=== PATIENT | female | born 1960 | race Caucasian/White ===

== ENCOUNTER → 2024-05-25 09:01 | Outpatient (REF) | payer OTHER, SELFPAY ==
--- NOTE | 2024-05-07 12:43 | PN.DIAED04 ---
Education Record
- Education Record
Class Attended: Other (Pre-Registration for DSME Classes)
DSME Class Series Code: [id number]
Instructor: Nurse Practitioner
Class Length (mins): 60
Pre-Program Knowledge: No knowledge
Pre-Test Score (%): 53
Goals
- Goal 1
Being Active: Exercise 30 minutes-5 times per week (Currently doing abd exercises for 10-15 minutes a day. Encouraged to add moderate ressistance workout routine)
Goals To Be Evaluated: Exercise 30 mins-5x/week
- Goal 2
Healthy Eating: Reduce portion sizes
Goals To Be Evaluated: Reduce portion sizes
- Goal 3
Monitoring: Follow monitoring schedule (Currently monitoring once a day, ebcouraged to monitor BID)
Goals To Be Evaluated: Follow monitoring times
--- NOTE | 2024-05-07 12:54 | PN.DIAED02 ---
Referral
DSME Class Series Code: [id number]
Referred For: Diabetes Self-Management Training, Disease Management
PHI Release Authorization Form Signed: Yes
Patient Problems:
Current Active Problems
Problem Status Onset
Type 2 diabetes mellitus without complications ~03/11/24
Demographic
(1) Type 2 diabetes mellitus without complications
Status: Acute Onset Date: ~03/11/24
Qualifiers:
Diabetes mellitus chcf insulin use: without chcf use Qualified Code(s): E11.9 - Type 2 diabetes mellitus without complications
Code(s): E11.9 - Type 2 diabetes mellitus without complications
Patient's primary language-: Pakistani
Education: High school/GED
Glycemic Control
- Blood Glucose Monitoring Assessment
Date: 05/07/24
Blood glucose monitoring at home: Yes (140)
Monitor Brands: OneTouch
Frequency: 1x per day
Time: fasting
Patient uses Alternate Site Testing: No
Patient instructed on Use and Limitation: No
- Blood Glucose Monitoring Results
Source: self-report
- Hemoglobin A1c
Date: 04/22/24
A1C Percentage (%): 8.7
Medical History of Diabetes
Family Diabetes History: Father (not biological)
Previous Diabetes Education: No
Previous visit with Dietitian: Yes
How long ago?: 1-5 years ago
Reason for visiting a Dietitian:
At initial dx of T2DM
Complications/Comorbidity/Specialist: Other / symptoms (Hypothyroidism)
- Psychosocial / Other Medical History
Notes:
ADHD, Anxiety and Depression
Measures
- Anthropometrics
Height: 5 ft 6 in
Actual Weight: 155 kg
- Blood Pressure / Pulse
Blood pressure: 135/86
- Diabetes Management
Medical Management for Diabetes: Complete physical exam (03/02/2024), Dental exam (04/28/2024), Dilated eye exam (11/14/2023), Foot exam (04/02/2024), Pneumonia vaccination (10/2022)
Self-Care
- Tobacco Usage
Do you now, or have you ever smoked?: Never smoked
- Alcohol & Drugs Usage
Drinks Alcohol: Yes
Amount/day: Social Occasions (A glass of wine)
Uses Recreational Drugs: No
- Meals & Dining
Meals & Dining: Patient skips meals: Yes, Food Intolerance / Allergy: No, Cultural / Buddhism Dietary Needs: No
Primary Food Education Nurse: Self
Primary Hospital Recruiter: Self
Dining Out Frequency: 1-3x per week
- Physical Activity
Physical Limitation: No
Patient participates in physical Activity: Yes (Ab lounger and squats)
Activity Types: Combination
Duration: 10-20 minutes
Frequency: 3-5x per week
Intensity: Easy
- Self Foot-Care
Foot Problems: None
Performs Self Foot-Exam: Yes
Frequency: Daily
- Patient-Self Assessment
Diabetes Knowledge: Poor
Feelings About Diabetes: Adaptation
General Health: Good
Importance of Health: Extremely
Stress Level: Medium
Diabetes Interferes With:: Nothing
Barriers to Diabetes Management: Nothing
Depression Survey Score: 10
- Diabetes Identification
Carries Diabetes Identification: No
Diabetes Identification Information Provided: No
Care Plan
- Education Needs
Patient Education Needs: Diabetes disease process, Chronic complications, Acute complications, Medication, Monitoring, Physical activity, Psychosocial Adjustment, Nutritional management, Goal setting & problem solving
Recommended Diabetes Training Program based on assessment: Outpatient Diabetes Education Program
- Plan of Care
Plan of Care:
Met with Patient today for registration and initiation of Diabetes Self management. Pt was recommended by her PCP due to uncontrolled blood sugars, A1C of 8.7% that was noted on recent blood work. Patient is taking Jardiance 25mg daily and
Repaglinide 1mg TID.
Reports that she has a Glucose monitor- Contour [employer] and is monitoring her sugars once a day-fasting. Reviewed testing pattern and set a schedule for her to monitor her blood sugars 2x/day- Fasting and 2 hrs after dinner.
Pt was counseled with emphasis on the importance of Physical activity, need to adhere to a healthy life style including healthy eating, taking her medications and monitoring blood glucose. We spent a good amount of time discussing dietary choices.
Goals for physical activity were established; pt will increase her duration of exercise to 45 minutes, 5 days a week.
--- NOTE | 2024-05-26 14:10 | PN.DIAED14 ---
This is to notify you that your patient with diabetes, LALO HURTADO ( 1960), has enrolled in our diabetes self-management classes that are being held at [facility].
These classes will include an introduction to diabetes, diet, medication, exercise and prevention of complications. At the end of our class series, you will receive a report of your patient's participation and progress for your records.
Please contact me at the Diabetes Center, , if there is any particular information regarding your patient that might be helpful to me.
Sincerely,
DARRYN Mccann-, [facility]
Director
Diabetes & Nutrition Services
== END ==
LOC: DES 09:01
PROVIDERS: ATTENDING PHYSICIAN Family Medicine
DX: E11.65 Type 2 diabetes mellitus with hyperglycemia (principal)
CPT/HCPCS: 99078

== ENCOUNTER → 2024-06-01 12:00 | Outpatient (REF) | payer OTHER, SELFPAY ==
--- NOTE | 2024-06-02 10:35 | PN.DIAED04 ---
Education Record
- Education Record
Class Attended: Class 2
DSME Class Series Code: [id number]
Instructor: Registered Dietitian (Bonnie Harding, RD, LDN, CDE)
Class Length (mins): 120
== END ==
LOC: DES 12:00
PROVIDERS: ATTENDING PHYSICIAN Family Medicine
DX: E11.65 Type 2 diabetes mellitus with hyperglycemia (principal)
CPT/HCPCS: 99078

== ENCOUNTER → 2024-06-08 12:00 | Outpatient (REF) | payer OTHER, SELFPAY ==
--- NOTE | 2024-06-09 13:08 | PN.DIAED04 ---
Education Record
- Education Record
Class Attended: Class 3
DSME Class Series Code: [id number]
Instructor: Registered Dietitian (Bonnie Harding, RD, LDN, CDE)
Class Length (mins): 120
Post-Class 2 & 3 Test Score (%): 100
== END ==
LOC: DES 12:00
PROVIDERS: ATTENDING PHYSICIAN Family Medicine
DX: E11.65 Type 2 diabetes mellitus with hyperglycemia (principal)
CPT/HCPCS: 99078

== ENCOUNTER → 2024-06-15 12:00 | Outpatient (REF) | payer OTHER, SELFPAY | LOC: DES 12:00 | PROVIDERS: ATTENDING PHYSICIAN Family Medicine | DX: E11.65 Type 2 diabetes mellitus with hyperglycemia (principal) | CPT/HCPCS: 99078 ==

== ENCOUNTER → 2024-06-22 12:00 | Outpatient (REF) | payer OTHER, SELFPAY ==
--- NOTE | 2024-06-23 11:26 | PN.DIAED16 ---
This is to notify you that your patient with diabetes, LALO HURTADO ( 1960), has attended the entire series of Diabetes Self-Management Education Classes.
Class 1 (120 minutes): Diabetes Overview - monitoring, stress/psychosocial adjustment, support, goal setting
Class 2 (120 minutes): Meal Planning - serving sizes, menu plans
Class 3 (120 minutes): Introduction to Carbohydrate Counting, Analyzing Food Labels
Class 4 (120 minutes): Medication, Exercise and Activity
Class 5 (120 minutes): Sick Day Management, Strategies to Reduce Complications, Problem Solving, Resources
The following behavioral goals were identified:
Exercise 30 mins-5x/week
Reduce portion sizes
Follow monitoring times
A follow-up call will be made within three to six months to evaluate attainment of these goals and to check post-program Hemoglobin A1c and overall progress. All class participants are encouraged to contact me if I can be any further assistance in
learning how to manage their diabetes.
Sincerely,
DARRYN Mccann-, [facility]
Director
Diabetes & Nutrition Services
--- NOTE | 2024-06-24 15:35 | PN.DIAED22 ---
- DSME LT-Depress Improved
Depression is associated with poor diabetes self-management and perceived inability to control diabetes.
After careful consideration and multiple layers of input, the [facility]'s outpatient diabetes education program has implemented a depression screening tool. The tool is the PHQ-9 Quick Depression Assessment.
Each patient who attends the outpatient diabetes education class responds to 9 questions before the first class starts. At the completion of the 5 classes, each patient again responds to the same 9 questions. In theory, after completing the program
the hope is that the patient will feel somewhat more capable of diabetes self-management.
Your patient, LALO HURTADO ( 1960), scored 10 on the pre-depression screening and 4 on the post-depression screening.
If you require any additional information, please do not hesitate to contact me at [phone].
Sincerely,
DARRYN Mccann-RUTHIE, [facility]
Director
Diabetes & Nutrition Services
== END ==
LOC: DES 12:00
PROVIDERS: ATTENDING PHYSICIAN Family Medicine
DX: E11.65 Type 2 diabetes mellitus with hyperglycemia (principal)
CPT/HCPCS: 99078

== ENCOUNTER → 2024-07-20 10:33 | Outpatient (REF) | payer OTHER, SELFPAY ==
--- NOTE | 2024-07-20 12:18 | PN.DE ---
Diabetes Education
- -
07/20/2024: Diabetes Education for CGM- FreeStyle Matteo 2
Met with Keira on 07/20/24 for instructions on Freestyle Matteo 2, most recent A1C to be 8.7%. Taking Jardiance and repaglinide and not on insulin. She recently completed DSME classes on 06/24/2024 and feels positive about what she has learned so far.
States she has an Accuchek glucose monitor and has been monitoring her sugars at home and is excited about monitoring now that she has the CGM in place. Emphasized importance of checking blood sugar prior to each meal and after to help correlate her
CHO intake with the impact on her blood sugars. Explained the arrows which will show blood sugar trending and importance to obtain a fingerstick if the Matteo is trending/reading low. Reviewed proper treatment of hypoglycemia. Reading the package
insert, with explanations, walked her through step by step application of Matteo and she successfully applied to R. arm. Scanned the sensor which will be ready for readings in 1 hour.
Keira was encouraged to call the office if she has any questions.
== END ==
LOC: DES 10:33
PROVIDERS: ATTENDING PHYSICIAN Family Medicine
DX: E11.65 Type 2 diabetes mellitus with hyperglycemia (principal)
CPT/HCPCS: 99078